=== PATIENT | female | born 1975 | race Caucasian/White ===

== ENCOUNTER 2017-09-30 08:50 | Emergency (ER) | payer BC ==
[~2017-09-30 08:50] MED LIST: ASPIR-TRIN325 M1 PO; ATIVAN2 MG PO; CATAPRES0.2 MG; CATAPRES0.2 MG PO; DIAZEPAM5 MG PO; LAMICTAL200 MG; LAMICTAL200 MG PO; LYRICA150 MG PO; OxyCODONE PO; OxyCONTIN PO; PERCOCET 5/31 TABLET PO; PROMETHAZINE HC25 M1 PO; SOMA350 M1; SOMA350 MG PO; ULTRAM50 MG PO; VALIUM10 MG PO; ZANAFLEX4 MG PO
[2017-09-30 09:05] LABS: EOSINOPHIL (%) 1.3 % (0-5); EOSINOPHIL COUNT 0.1 K/uL (0-0.3); HEMATOCRIT 39.8 % (36.0-46.0); INSTRUMENT ABS NEUTROPHIL CT 2.1 K/uL; LYMPHOCYTE COUNT 2.8 K/uL (1.0-2.8); MCH 31.9 PG (29.0-34.0); MCHC 34.2 G/DL (30.0-36.0); MCV 93.2 FL (83-99); MONOCYTE (%) 7.8 % (3-12); MONOCYTE COUNT 0.4 K/uL (0-0.8); NEUTROPHIL (%) 38.2 % (45-76); NEUTROPHIL COUNT 2.1 K/uL (1.8-6.4); PLATELET COUNT 280 K/uL (156-360); RBC DIS.WIDTH-CV 11.8 % (11.8-14.6); RBC DIS.WIDTH-SD 40.3 % (39-53); RED BLOOD COUNT 4.27 M/uL (3.80-5.20); WHITE BLOOD COUNT 5.4 K/uL (4.1-10.2)
[2017-09-30 09:18] LABS: AMYLASE 94 IU/L (1-118); CHLORIDE 107 mEq/L (99-109); POTASSIUM 4.5 mEq/L (3.7-5.4); SODIUM 140 mEq/L (136-147)
[2017-09-30 09:20] LABS: GLUCOSE 101 mg/dL (70-99)
[2017-09-30 09:21] LABS: ANION GAP 11 MEQ/L (2-14)
[2017-09-30 09:23] LABS: SERUM ETHYL ALCOHOL < 10 mg/dL
[2017-09-30 09:24] LABS: GFR ESTIMATE (CALCULATED) > 59 mL/min/
[2017-09-30 09:25] LABS: UREA NITROGEN (BUN) 11 mg/dL (9-23)
[2017-09-30 09:27] LABS: LIPASE 12 U/L (1.0-51.0)
[2017-09-30 09:33] LABS: QUANTITATIVE HCG < 4.0 MIU/ML
[2017-09-30 12:27] VITALS: BP 108/72
[2017-09-30] MEDS ORDERED: DILAUDID2 MG PO (14:34)
[2017-09-30 14:45] LABS: ADD MIUA? YES; BILIRUBIN NEGATIVE; BLOOD NEGATIVE; COLOR YELLOW ((YELLOW)); GLUCOSE (STRIP) NEGATIVE; KETONES NEGATIVE; LEUKOCYTES TRACE; NITRITE NEGATIVE; PROTEIN (STRIP) NEGATIVE; SPECIFIC GRAVITY 1.012 (1.000-1.030); UROBILINOGEN 0.2 MG/DL (0.2-1.0)
[2017-09-30 14:51] LABS: BACTERIA NONE SEEN /HPF; EPITHELIAL CELLS 2+ /HPF; MUCUS TRACE /LPF; RED BLOOD CELLS 0-5 /HPF (0-5); UCUL ADDED? NO; WHITE BLOOD CELLS 0-5 /HPF (0-5)
[2017-09-30 14:54] LABS: AMPHETAMINE NEGATIVE (500 ng/mL); BARBITURATES NEGATIVE (200 ng/mL); BENZODIAZEPINES PRESUMPTIVE POSITIVE (150 ng/mL); COCAINE NEGATIVE (150 ng/mL); METHADONE NEGATIVE (200 ng/mL); METHAMPHETAMINE NEGATIVE (500 ng/mL); OPIATES (MORPHINE) PRESUMPTIVE POSITIVE (100 ng/mL); PHENCYCLIDINE NEGATIVE (25 ng/mL); THC CANNABINOIDS NEGATIVE (50 ng/mL); TRICYCLIC ANTIDEPRESSANTS NEGATIVE (300 ng/mL)
[2017-09-30 14:55] LABS: ADD MEDTOX COMMENT Y; INTERNAL CONTROLS VALID? YES; OXYCODONE PRESUMPTIVE POSITIVE (100 ng/mL); PROPOXYPHENE NEGATIVE (300 ng/mL)
[2017-09-30 15:18] LABS: BENZODIAZEPINES, URINE SCREEN POSITIVE (200 ng/mL)
== END 2017-09-30 15:40 | disposition home or self-care (01) ==
LOC: TRA 08:50
PROVIDERS: Emergency Medicine
DX: M54.5 Low back pain (principal); W10.9XXA Fall (on) (from) unspecified stairs and steps, initial encounter; R41.0 Disorientation, unspecified; Z98.1 Arthrodesis status; F31.9 Bipolar disorder, unspecified; F41.9 Anxiety disorder, unspecified
CPT/HCPCS: 70450; 72125; 72128; 72131; 80048; 81003; 82150; 83690; 84702; 84999; 85025; 86850; 86900; 86901; 99281; 99285; G0480; J1170; J1200; J2060; J2405; J7050

== ENCOUNTER 2017-10-15 22:36 | Observation (INO) | payer BC ==
[~2017-10-15] VITALS: Ht 165.1 cm; Wt 70.2 kg
[~2017-10-15 22:36] MED LIST changes: +DILAUDID2 MG PO
[2017-10-16 02:02] LABS: EOSINOPHIL (%) 1.2 % (0-5); EOSINOPHIL COUNT 0.1 K/uL (0-0.3); HEMATOCRIT 36.3 % (36.0-46.0); IMMATURE GRANULOCYTE (%) 0.3 % (0.0-0.7); INSTRUMENT ABS NEUTROPHIL CT 3.8 K/uL; MCH 32.2 PG (29.0-34.0); MCHC 35.3 G/DL (30.0-36.0); MCV 91.2 FL (83-99); MONOCYTE COUNT 0.4 K/uL (0-0.8); NEUTROPHIL COUNT 3.8 K/uL (1.8-6.4); PLATELET COUNT 264 K/uL (156-360); RBC DIS.WIDTH-CV 11.6 % (11.8-14.6); RBC DIS.WIDTH-SD 38.5 % (39-53); RED BLOOD COUNT 3.98 M/uL (3.80-5.20); WHITE BLOOD COUNT 7.4 K/uL (4.1-10.2)
[2017-10-16 02:18] LABS: CHLORIDE 106 mEq/L (99-109); POTASSIUM 3.6 mEq/L (3.7-5.4); SODIUM 144 mEq/L (136-147)
[2017-10-16 02:19] LABS: GLUCOSE 87 mg/dL (70-99)
[2017-10-16 02:21] LABS: ANION GAP 15 MEQ/L (2-14)
[2017-10-16 02:23] LABS: GFR ESTIMATE (CALCULATED) > 59 mL/min/
[2017-10-16 02:24] LABS: UREA NITROGEN (BUN) 14 mg/dL (9-23)
[2017-10-16 02:28] LABS: TROP-I INTERPRETATION NEGATIVE; TROPONIN-I < 0.01 ng/mL (0.0-0.30)
[2017-10-16 11:49] VITALS: BP 137/82
[2017-10-16] MEDS ORDERED: OXYCODONE-APAP1 EAC6 PO (14:59)
[2017-10-16] MEDS ORDERED: HYDROXYZINE PAM25 MG PO (15:00)
[2017-10-16] MEDS ORDERED: METHOCARBAMOL750 MG PO (15:00)
[2017-10-16] MEDS ORDERED: QUETIAPINE FUM100 MG PO (15:01)
[2017-10-16] MEDS ORDERED: DIAZEPAM10 MG PO (15:02)
[2017-10-16] MEDS ORDERED: ZOLPIDEM TART12.5 MG PO (15:02)
[2017-10-16 16:00] VITALS: BP 126/69
[2017-10-16 21:40] VITALS: BP 104/64
[2017-10-16 23:34] VITALS: BP 119/76
[2017-10-17 03:48] VITALS: BP 112/62
[2017-10-17 06:31] LABS: HEMATOCRIT 32.8 % (36.0-46.0); MCH 32.8 PG (29.0-34.0); MCHC 35.7 G/DL (30.0-36.0); MCV 91.9 FL (83-99); RBC DIS.WIDTH-CV 11.9 % (11.8-14.6); RBC DIS.WIDTH-SD 40.1 % (39-53); RED BLOOD COUNT 3.57 M/uL (3.80-5.20); WHITE BLOOD COUNT 6.7 K/uL (4.1-10.2)
[2017-10-17 07:26] LABS: MEAN PLAT.VOLUME 9.8 uM^3 (9.5-12.4)
[2017-10-17 08:58] VITALS: BP 116/82
[2017-10-17 11:49] VITALS: BP 113/77
[2017-10-17 15:33] VITALS: BP 119/67
[2017-10-17 19:44] VITALS: BP 112/65
[2017-10-17 23:49] VITALS: BP 111/74
[2017-10-18 03:22] VITALS: BP 116/64
[2017-10-18 07:28] VITALS: BP 103/60
[2017-10-18] MEDS ORDERED: BUTALB-APAP-CA1 EACH PO (11:57)
[2017-10-18] MEDS ORDERED: OXYCODONE-APAP1 EACH PO (11:57)
== END 2017-10-18 12:18 | disposition home or self-care (01) ==
LOC: EME 22:36 → EDOF 10-16 04:44 → 5WEST 10-16 04:44 → EDOF 10-16 04:44 → ENRESERV 10-16 04:46 → 5WEST 10-16 07:02
PROVIDERS: Emergency Medicine; Internal Medicine
DX: R55 Syncope and collapse (principal); R51 Headache; Z98.1 Arthrodesis status; Z91.81 History of falling; R47.1 Dysarthria and anarthria; R41.0 Disorientation, unspecified; R11.0 Nausea; F31.9 Bipolar disorder, unspecified; F41.9 Anxiety disorder, unspecified; Z86.14 Personal history of Methicillin resistant Staphylococcus aureus infection; Z90.49 Acquired absence of other specified parts of digestive tract; Z88.5 Allergy status to narcotic agent; Z88.6 Allergy status to analgesic agent; Z88.8 Allergy status to other drugs, medicaments and biological substances; Z82.3 Family history of stroke
CPT/HCPCS: 70544; 70551; 80048; 84484; 85025; 85027; 93005; 95819; G0378; J1100; J1170; J1200; J2250; J2405; J3010; J7030; Q0177

== ENCOUNTER 2017-10-25 00:30 | Observation (INO) | payer BC ==
[~2017-10-25] VITALS: Ht 167.6 cm; Wt 65.0 kg
[~2017-10-25 00:30] MED LIST changes: +BUTALB-APAP-CA1 EACH PO; +DIAZEPAM10 MG PO; +HYDROXYZINE PAM25 MG PO; +METHOCARBAMOL750 MG PO; +OXYCODONE-APAP1 EAC6 PO; +OXYCODONE-APAP1 EACH PO; +QUETIAPINE FUM100 MG PO; +ZOLPIDEM TART12.5 MG PO
[2017-10-25 01:19] LABS: EOSINOPHIL (%) 1.4 % (0-5); EOSINOPHIL COUNT 0.1 K/uL (0-0.3); HEMATOCRIT 39.9 % (36.0-46.0); IMMATURE GRANULOCYTE (%) 0.2 % (0.0-0.7); INSTRUMENT ABS NEUTROPHIL CT 2.7 K/uL; LYMPHOCYTE COUNT 3.2 K/uL (1.0-2.8); MCH 32.3 PG (29.0-34.0); MCHC 35.6 G/DL (30.0-36.0); MCV 90.7 FL (83-99); MEAN PLAT.VOLUME 8.8 uM^3 (9.5-12.4); MONOCYTE (%) 7.8 % (3-12); MONOCYTE COUNT 0.5 K/uL (0-0.8); NEUTROPHIL (%) 41.1 % (45-76); NEUTROPHIL COUNT 2.7 K/uL (1.8-6.4); PLATELET COUNT 269 K/uL (156-360); RBC DIS.WIDTH-CV 11.7 % (11.8-14.6); RBC DIS.WIDTH-SD 38.8 % (39-53); WHITE BLOOD COUNT 6.5 K/uL (4.1-10.2)
[2017-10-25 01:43] LABS: CHLORIDE 104 mEq/L (99-109)
[2017-10-25 01:44] LABS: POTASSIUM 3.9 mEq/L (3.7-5.4); SODIUM 140 mEq/L (136-147)
[2017-10-25 01:46] LABS: GLUCOSE 97 mg/dL (70-99)
[2017-10-25 01:47] LABS: ANION GAP 12 MEQ/L (2-14)
[2017-10-25 01:48] LABS: TOTAL BILIRUBIN 0.2 mg/dL (0.0-1.0)
[2017-10-25 01:49] LABS: ALKALINE PHOSPHATASE 64 IU/L (3-129); GFR ESTIMATE (CALCULATED) > 59 mL/min/
[2017-10-25 01:51] LABS: UREA NITROGEN (BUN) 14 mg/dL (9-23)
[2017-10-25 01:52] LABS: CREATINE KINASE 58 IU/L (1-294); TOTAL CK 58 IU/L (1-294)
[2017-10-25 01:58] LABS: QUANTITATIVE HCG < 4.0 MIU/ML
[2017-10-25 01:59] LABS: CK-MB 0.7 ng/mL (0.0-4.9)
[2017-10-25] MEDS ORDERED: OXYCODONE-APAP1 EAC6 PO (07:42)
[2017-10-25 09:17] LABS: ADD MIUA? YES; BILIRUBIN NEGATIVE; BLOOD NEGATIVE; COLOR YELLOW ((YELLOW)); GLUCOSE (STRIP) NEGATIVE; KETONES NEGATIVE; LEUKOCYTES TRACE; NITRITE NEGATIVE; PROTEIN (STRIP) NEGATIVE; SPECIFIC GRAVITY 1.014 (1.000-1.030); UROBILINOGEN 0.2 MG/DL (0.2-1.0)
[2017-10-25 09:20] LABS: BACTERIA RARE /HPF; EPITHELIAL CELLS 1+ /HPF; MUCUS TRACE /LPF; RED BLOOD CELLS 0-5 /HPF (0-5); UCUL ADDED? NO; WHITE BLOOD CELLS 0-5 /HPF (0-5)
[2017-10-25 09:38] LABS: AMPHETAMINES QUANT VALUE 0 NG/ML; BARBITUATES QUANT VALUE 0 NG/ML; BENZODIAZEPINES, URINE SCREEN POSITIVE (200 ng/mL); MARIJUANA QUANT VALUE 0 NG/ML; OPIATES QUANTITATIVE VALUE 0 NG/ML; PHENCYCLIDINE QUANT VALUE 0 NG/ML
[2017-10-25 11:30] VITALS: BP 131/82
[2017-10-25 17:31] VITALS: BP 107/63
[2017-10-25 19:38] VITALS: BP 99/56
[2017-10-25 19:42] VITALS: BP 99/56
[2017-10-25 23:55] VITALS: BP 106/60
[2017-10-26 04:08] VITALS: BP 113/58
[2017-10-26 08:04] VITALS: BP 155/81
[2017-10-26 11:31] VITALS: BP 122/60
[2017-10-26 11:43] LABS: EOSINOPHIL (%) 1.5 % (0-5); EOSINOPHIL COUNT 0.1 K/uL (0-0.3); HEMATOCRIT 35.5 % (36.0-46.0); IMMATURE GRANULOCYTE (%) 0.2 % (0.0-0.7); INSTRUMENT ABS NEUTROPHIL CT 1.7 K/uL; LYMPHOCYTE COUNT 2.4 K/uL (1.0-2.8); MCH 32.9 PG (29.0-34.0); MCHC 35.8 G/DL (30.0-36.0); MEAN PLAT.VOLUME 9.3 uM^3 (9.5-12.4); MONOCYTE (%) 8.7 % (3-12); MONOCYTE COUNT 0.4 K/uL (0-0.8); NEUTROPHIL (%) 36.1 % (45-76); NEUTROPHIL COUNT 1.7 K/uL (1.8-6.4); PLATELET COUNT 218 K/uL (156-360); RBC DIS.WIDTH-CV 11.9 % (11.8-14.6); RBC DIS.WIDTH-SD 40.4 % (39-53); RED BLOOD COUNT 3.86 M/uL (3.80-5.20); WHITE BLOOD COUNT 4.6 K/uL (4.1-10.2)
[2017-10-26 12:55] LABS: ALKALINE PHOSPHATASE 46 IU/L (3-129); ANION GAP 8 MEQ/L (2-14); CHLORIDE 109 MEQ/L (99-109); GFR ESTIMATE (CALCULATED) > 59 mL/min/; GLUCOSE 101 mg/dL (70-99); POTASSIUM 4.4 MEQ/L (3.7-5.4); SAMPLE HEMOLYSIS CHECK 0; SAMPLE ICTERIC CHECK 0; SAMPLE LIPEMIA CHECK 0; SODIUM 141 MEQ/L (136-147); TOTAL BILIRUBIN 0.2 MG/DL (0.0-1.0); UREA NITROGEN (BUN) 13 mg/dL (9-23)
[2017-10-26] MEDS ORDERED: INDERAL40 MG PO (13:08)
[2017-10-26] MEDS ORDERED: OXYCODONE-APAP1 EAC6 PO ×2 (14:02→14:04)
== END 2017-10-26 14:42 | disposition home or self-care (01) ==
LOC: EME → EDBD 00:30 → EME 00:30 → EDOF 04:14 → ENRESERV 04:17 → 5EAST 09:24
PROVIDERS: Emergency Medicine; Hospitalist
DX: R56.9 Unspecified convulsions (principal); R55 Syncope and collapse; G44.309 Post-traumatic headache, unspecified, not intractable; R11.0 Nausea; Z91.81 History of falling; F31.9 Bipolar disorder, unspecified; F41.9 Anxiety disorder, unspecified; Z86.14 Personal history of Methicillin resistant Staphylococcus aureus infection; G89.29 Other chronic pain; M54.9 Dorsalgia, unspecified; Z98.1 Arthrodesis status; Z90.49 Acquired absence of other specified parts of digestive tract; Z88.5 Allergy status to narcotic agent; Z88.8 Allergy status to other drugs, medicaments and biological substances
CPT/HCPCS: 70450; 80048; 80053; 80076; 80306 90; 81003; 82550; 82553; 84702; 85025; 93005; 99281; 99285; G0378; J1200; J1650; J2405; J3010; J7030; Q0177